=== PATIENT | female | born 1985 | race African-American/Black ===

== ENCOUNTER 2017-08-02 07:20 | Emergency (ER) | payer MEDICAID ==
[~2017-08-02] VITALS: Ht 175.3 cm; Wt 124.4 kg
[~2017-08-02 07:20] MED LIST: MMW SSP; PENI500T PO; SULF1TAB47 PO; ZOFR4TAB3 SL
[2017-08-02 07:32] VITALS: BP 113/55; PULSE 60; RESP 16; TEMP 98.1
[2017-08-02 07:51] LABS: BILIRUBIN, URINE NEG (NEG); BLOOD, URINE NEG (NEG); GLUCOSE,URINE NEG (NEG); KETONE, URINE NEG (NEG); NITRITE,URINE NEG (NEG); URINE COLOR YELLOW (YELLW/STRAW); URINE LEUKOCYTE ESTERASE SMALL (NEG)
[2017-08-02 08:06] LABS: SQUAMOUS EPITHELIAL CELL URINE 0-5 /hpf (0-5)
[2017-08-02] MEDS ORDERED: CEPH-460 PO (08:18)
--- NOTE | 2017-08-02 08:18 | PD ---
HPI Chief Complaint: Complaint Time Seen by Provider: 08:04 Travel History International Travel<30 days: No Contact w/Intl Traveler<30days: No Traveled to known affect area: No History of Present Illness HPI 33-year-old female presented to the ER for evaluation of UTI-like symptoms including frequency urgency urination started about 4 days ago. Patient has no fever or chills or night sweats she has no pelvic pain, no vaginal discharge or bleeding nausea vomiting or diarrhea, no flank pain. Patient says that she tries to drink water but his urination is burning and thinks that she has a UTI. PFSH Past Medical History Diminished Hearing: No Immunizations Current: Yes ?: Not LMP: last month Menopausal: No : 5 Para: 2 Miscarriage: 1 : 1 Past Surgical History Abdominal Surgery: Yes (c section) Section: Yes (X3) Gynecologic Surgery: Yes () Social History Alcohol Use: No Tobacco Use: No Substance Use: No Allergies-Medications (Allergen,Severity, Reaction): Coded Allergies: clindamycin (Unverified Allergy, Severe, SWELLING/RASH, 08/02/17) Reported Meds & Prescriptions Reported Meds & Active Scripts Active Keflex (Cephalexin) 500 Mg Cap 500 Mg PO Q12H 7 Days Review of Systems Except as stated in HPI: all other systems reviewed are Neg Physical Exam Narrative GENERAL: Alert oriented 3 no acute distress SKIN: Focused skin assessment warm/dry. HEAD: Atraumatic. Normocephalic. EYES: Pupils equal and round. No scleral icterus. No injection or drainage. ENT: No nasal bleeding or discharge. Mucous membranes pink and moist. NECK: Trachea midline. No JVD. CARDIOVASCULAR: Regular rate and rhythm. No murmur appreciated. RESPIRATORY: No accessory muscle use. Clear to auscultation. Breath sounds equal bilaterally. GASTROINTESTINAL: Abdomen soft, non-tender, nondistended. Hepatic and splenic margins not palpable. MUSCULOSKELETAL: No obvious deformities. No clubbing. No cyanosis. No edema. NEUROLOGICAL: Awake and alert. No obvious cranial nerve deficits. Motor grossly within normal limits. Normal speech. PSYCHIATRIC: Appropriate mood and affect; insight and judgment normal. Data Data Last Documented VS Vital Signs Date Time Temp Pulse Resp B/P (MAP) Pulse Ox O2 Delivery O2 Flow Rate FiO2 08/02/17 07:32 98.1 60 16 113/55 (74) Orders Orders Urinalysis - C+S If Indicated (08/02/17 07:30) Ed Discharge Order (08/02/17 08:19) Labs Laboratory Tests Test 08/02/17 07:44 Urine Color YELLOW Urine Turbidity CLEAR Urine pH 7.0 Urine Specific Randolph 1.010 Urine Protein NEG mg/dL Urine Glucose (UA) NEG mg/dL Urine Ketones NEG mg/dL Urine Occult Blood NEG Urine Nitrite NEG Urine Bilirubin NEG Urine Urobilinogen 0.2 MG/DL Urine Leukocyte Esterase SMALL Urine Squamous Epithelial Cells 0-5 /hpf Microscopic Urinalysis Comment CULT NOT INDICATED MDM Medical Decision Making Medical Screen Exam Complete: Yes Emergency Medical Condition: Yes Differential Diagnosis UTI, pyelonephritis, PID, Jennifer vaginitis. Narrative Course 32-year-old female presented ER for evaluation of UTI-like symptoms. History asks very consistent with a UTI, physical examination is unremarkable, urinalysis shows small leukocyte esterase which could be explained by the symptoms. Since the patient has symptoms of UTI will give the patient a course of antibiotics and have her follow-up with her primary care physician for repeat urinalysis to document resolution meanwhile if symptoms change or do not improve she will have to come to the ER for further evaluation. Patient understands and agrees to the plan of care. Laboratory Tests Test 08/02/17 07:44 Urine Color YELLOW Urine Turbidity CLEAR Urine pH 7.0 Urine Specific Randolph 1.010 Urine Protein NEG mg/dL Urine Glucose (UA) NEG mg/dL Urine Ketones NEG mg/dL Urine Occult Blood NEG Urine Nitrite NEG Urine Bilirubin NEG Urine Urobilinogen 0.2 MG/DL Urine Leukocyte Esterase SMALL Urine Squamous Epithelial Cells 0-5 /hpf Microscopic Urinalysis Comment CULT NOT INDICATED Diagnosis Primary Impression: UTI (urinary tract infection) Qualified Codes: N39.0 - Urinary tract infection, site not specified Referrals: Primary Care Physician as needed Patient Instructions: General Instructions Departure Forms: Tests/Procedures Additional Instructions: Follow-up with primary care physician and return to ER if symptoms change or do not improve. Scripts Cephalexin (Keflex) 500 Mg Cap 500 MG PO Q12H for Infection for 7 Days, #14 CAP 0 Refills Prov: Christiano Maurer MD 08/02/17 Disposition: 01 DISCHARGE HOME Condition: Stable Christiano Maurer MD Aug 02, 2017 08:18
== END 2017-08-02 09:23 | disposition home or self-care (01) ==
LOC: PHED 07:20
DX: N39.0 Urinary tract infection, site not specified (principal)
CPT/HCPCS: 81001; 99283